=== PATIENT | male | born 1995 | race Caucasian/White ===

== ENCOUNTER 2020-09-17 19:55 | Emergency (ER) | payer OTHER ==
[2020-09-17 22:17] LABS: BASOPHIL 0.3 % (0-2); EOSINOPHIL 0 % (0-5); HCT 45.4 % (42.0-52.0); HGB 15.1 g/dl (13.2-18.0); LYMPHOCYTE 7.1 % (15-48); MCHC 33.3 g/dL (32.0-36.0); MCV 81.1 fL (78.0-100.0); MONOCYTE 12.4 % (0-12); MPV 9.6 fL (6.0-9.5); NEUTROPHIL 79.8 % (41-80); NRBC 0; PLT 270 K/uL (150-400); RDW 11.9 % (11.5-14.0); WBC 12.6 K/uL (4.0-10.5)
[2020-09-17 22:28] LABS: CREATININE 1.17 mg/dL (0.67-1.17); POTASSIUM 3.8 mmol/L (3.5-5.1)
[2020-09-17 23:36] LABS: BILIRUBIN 1+ mg/dL (NEGATIVE); BLOOD NEGATIVE Ery/uL (NEGATIVE); CLARITY CLEAR (CLEAR); COLOR YELLOW (YELLOW); GLUCOSE (U) NORMAL (NORMAL); LEUKOCYTES NEGATIVE Leu/uL (NEGATIVE); NITRITE NEGATIVE (NEGATIVE); PROTEIN TRACE (LOW) mg/dL (NEGATIVE)
[2020-09-17 23:51] LABS: CORONAVIRUS 2019 SARS-COV-2 NEGATIVE (NEGATIVE); INFLUENZA A NAA NEGATIVE (NEGATIVE)
[2020-09-18 01:33] LABS: MONOSPOT (MONONUCLEOSIS) NEGATIVE (NEGATIVE)
== END 2020-09-18 03:13 | disposition home or self-care (01) ==
LOC: FER 19:55
PROVIDERS: Internal Medicine; Nurse Practitioner Family
DX: R50.9 Fever, unspecified (principal); R11.2 Nausea with vomiting, unspecified; R19.7 Diarrhea, unspecified; J45.909 Unspecified asthma, uncomplicated; Z20.822 Contact with and (suspected) exposure to COVID-19; Z88.5 Allergy status to narcotic agent
CPT/HCPCS: 36415; 80048; 81003; 85025; 86308; 87880; 99284; U0002